=== PATIENT | male | born 1990 | race Caucasian/White ===

== ENCOUNTER 2017-04-12 03:10 | Emergency (ER) | payer SELFPAY ==
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
== END 2017-04-12 04:25 ==
LOC: MW.ED 03:10
DX: S01.81XA Laceration without foreign body of other part of head, initial encounter (principal); F10.120 Alcohol abuse with intoxication, uncomplicated; F17.210 Nicotine dependence, cigarettes, uncomplicated; W25.XXXA Contact with sharp glass, initial encounter
CPT/HCPCS: 12011; 99282; 99283

== ENCOUNTER 2019-11-26 00:45 | Emergency (ER) | payer OTHER ==
[2019-11-26] MEDS ORDERED: Lidocaine 1% with EPINEPHrine 1:100,000 20 ML MDV INJECT ONE (01:10)
[2019-11-26] MEDS ORDERED: Hydrogen Peroxide 3% Top Soln 473 ML Bottle TOP ONE (01:10)
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
== END 2019-11-26 03:45 ==
LOC: MW.ED 00:45
DX: S01.112A Laceration without foreign body of left eyelid and periocular area, initial encounter (principal); F10.129 Alcohol abuse with intoxication, unspecified; R09.02 Hypoxemia; Z20.828 Contact with and (suspected) exposure to other viral communicable diseases; W22.8XXA Striking against or struck by other objects, initial encounter
CPT/HCPCS: 12013; 99282; 99283; U0002

== ENCOUNTER 2020-06-28 18:28 | Emergency (ER) | payer BC | END 2020-06-28 19:40 | disposition home or self-care (01) | LOC: MW.ED 18:28 | DX: Z02.89 Encounter for other administrative examinations (principal); Z91.030 Bee allergy status; Z72.0 Tobacco use | CPT/HCPCS: 82962; 99282; 99283 ==

== ENCOUNTER 2020-07-05 15:02 | Emergency (ER) | payer BC, OTHER ==
--- NOTE | 2020-07-05 15:27 | EDM.PDOC ---
ED HPI GENERAL MEDICAL PROBLEM - General Chief Complaint: General Stated Complaint: MEDICAL CLEARANCE Time Seen by Provider: 07/05/20 15:12 Source of Information: Reports: Patient History Limitations: Reports: No Limitations - History of Present Illness INITIAL COMMENTS - FREE TEXT/NARRATIVE: 30-year-old male presents for medical clearance for confinement. Patient does admit to drinking alcohol. He has no medical complaints. - Related Data Allergies Allergy/AdvReac Type Severity Reaction Status Date / Time bee venom protein (honey bee) Allergy Airway Verified 07/05/20 15:23 Tightness Home Meds: Home Meds . [No Known Home Meds] 04/12/17 [History] Past Medical History HEENT History: Reports: None Cardiovascular History: Reports: None Respiratory History: Reports: None Gastrointestinal History: Reports: None Genitourinary History: Reports: None Musculoskeletal History: Reports: None Neurological History: Reports: None Psychiatric History: Reports: None Endocrine/Metabolic History: Reports: None Hematologic History: Reports: None Immunologic History: Reports: None Oncologic (Cancer) History: Reports: None Dermatologic History: Reports: None - Infectious Disease History Infectious Disease History: Reports: Hepatitis C - Past Surgical History Head Surgeries/Procedures: Reports: None HEENT Surgical History: Reports: None Cardiovascular Surgical History: Reports: None Respiratory Surgical History: Reports: None GI Surgical History: Reports: None Male Surgical History: Reports: None Endocrine Surgical History: Reports: None Neurological Surgical History: Reports: None Musculoskeletal Surgical History: Reports: None Oncologic Surgical History: Reports: None Social & Family History - Family History Family Medical History: No Pertinent Family History HEENT: Reports: None - Caffeine Use Caffeine Use: Reports: None ED ROS GENERAL - Review of Systems Review Of Systems: Comprehensive ROS is negative, except as noted in HPI. ED EXAM, GENERAL - Physical Exam Exam: See Below Exam Limited By: No Limitations General Appearance: Alert, WD/WN, No Apparent Distress Throat/Mouth: Normal Voice, No Airway Compromise Head: Atraumatic, Normocephalic Neck: Normal Inspection Respiratory/Chest: No Respiratory Distress, No Accessory Muscle Use Cardiovascular: Normal Peripheral Pulses, Tachycardia GI/Abdominal: Soft, Non-Tender Extremities: Normal Inspection Neurological: Alert, Normal Gait Psychiatric: Normal Affect, Normal Mood Skin Exam: Warm, Dry, Intact, Normal Color Course - Re-Assessments/Exams Free Text/Narrative Re-Assessment/Exam: 07/05/20 15:26 Patient is stable on his feet, speaks without slurred speech, does not reveal any evidence of clinical intoxication. He is mildly tachycardic which is understandable in the setting of alcohol abuse. He denies chest pain or difficulty breathing. He has no medical complaints. Patient is stable for discharge to intermediate Departure - Departure Time of Disposition: 15:22 Disposition: Home, Self-Care 01 Condition: Good Clinical Impression: Alcohol abuse - Discharge Information Instructions: Alcohol Use Disorder Referrals: PCP,None [Primary Care Provider] - Additional Instructions: The following information is given to patients seen in the emergency department who are being discharged to home. This information is to outline your options for follow-up care. We provide all patients seen in our emergency department with a follow-up referral. The need for follow-up, as well as the timing and circumstances, are variable depending upon the specifics of your emergency department visit. If you don't have a primary care physician on staff, we will provide you with a referral. We always advise you to contact your personal physician following an emergency department visit to inform them of the circumstance of the visit and for follow-up with them and/or the need for any referrals to a consulting specialist. The emergency department will also refer you to a specialist when appropriate. This referral assures that you have the opportunity for follow-up care with a specialist. All of these measure are taken in an effort to provide you with optimal care, which includes your follow-up. Under all circumstances we always encourage you to contact your private physician who remains a resource for coordinating your care. When calling for follow-up care, please make the office aware that this follow-up is from your recent emergency room visit. If for any reason you are refused follow-up, please contact the [facility] Emergency Department at and asked to speak to the emergency department charge nurse. Please follow up with your primary care physician. If you do not have a primary care physician, see below: [facility] [address] [place] [id number] [facility] [address] [place] [id number] [facility] [address] [place] [id number]
== END 2020-07-05 15:40 | disposition home or self-care (01) ==
LOC: MW.ED 15:02
DX: F10.10 Alcohol abuse, uncomplicated (principal); Z91.030 Bee allergy status
CPT/HCPCS: 99282

== ENCOUNTER 2023-01-25 17:39 | Emergency (ER) | payer BC, OTHER ==
[~2023-01-25 17:39] MED LIST: LORazepam 2 MG/ML SDV IM ONE; OLANZapine 10 MG Vial IM ONE
[2023-01-25] MEDS ORDERED: OLANZapine 10 MG Vial ONE (17:41)
[2023-01-25] MEDS ORDERED: LORazepam 2 MG/ML SDV ONE (17:42)
[2023-01-25] MEDS ORDERED: Water For Injection, Sterile 20 ML ONE (17:42)
[2023-01-25] MEDS ORDERED: Sodium Chloride 0.9% 10 ML Syringe FLUSH PRN (17:45)
[2023-01-25] MEDS ORDERED: Sodium Chloride 0.9% 2.5 ML Syringe FLUSH PRN (17:45)
[2023-01-25 18:17] LABS: HEMATOCRIT 49.7 % (38.0-50.0); HEMOGLOBIN 17.4 g/dL (13.0-17.0); MEAN CORPUSCULAR HEMOGLOBIN 29.6 pg (27.0-32.0); MEAN CORPUSCULAR VOLUME 84.7 fL (80.0-98.0); PLATELET COUNT,PLT 288 K/uL (150-400); RED BLOOD CELL COUNT 5.87 M/uL (4.50-5.90)
[2023-01-25] MEDS ORDERED: LORazepam 2 MG/ML SDV IVPUSH ONE ×2 (18:17→18:18)
[2023-01-25 18:39] LABS: MAGNESIUM 2.4 mg/dL (1.8-2.4)
[2023-01-25 18:41] LABS: INR 0.95 (0.86-1.11)
[2023-01-25] MEDS ORDERED: Sodium Chloride 0.9% 1,000 ML IV ONE (18:45)
[2023-01-25 18:46] LABS: A/G RATIO 1.1 (0.9-1.6); ALANINE AMINOTRANSFERASE,ALT 51 IU/L (14-63); ALBUMIN 4.2 g/dL (3.4-5.0); ALKALINE PHOSPHATASE 81 U/L (46-116); ASPARTATE AMNIOTRANSFERASE,AST 24 IU/L (15-37); BILIRUBIN TOTAL 0.2 mg/dL (0.2-1.0); BLOOD UREA NITROGEN,BUN 7 mg/dL (7.0-18.0); CALCIUM 8.3 mg/dL (8.5-10.1); CARBON DIOXIDE,CO2 24.9 mmol/L (21.0-32.0); CHLORIDE,CL 108 mmol/L (98-107); CREATININE 0.9 mg/dL (0.8-1.3); GLUCOSE RANDOM 116 mg/dL (74-106); LIPASE 44 U/L (16-77); POTASSIUM,K 3.5 mmol/L (3.5-5.1); SODIUM,NA 146 mmol/L (136-148)
[2023-01-25 18:47] LABS: ESTIMATED GFR 116 mL/min (>60)
[2023-01-25 19:10] LABS: BAND ABSOLUTE MAN 5.3; LYMPHOCYTES ABSOLUTE MAN 5.3 (0.6-2.4); LYMPHOCYTES PERCENT MAN 36 % (16.0-40.0); MONOCYTES ABSOLUTE MAN 1.9 (0.0-0.8); MONOCYTES PERCENT MAN 13 % (0.0-15.0); SEG NEUTROPHILS ABSOLUTE MAN 7.1 (1.4-5.7); SEG NEUTROPHILS PERCENT MAN 48 % (48.0-80.0)
[2023-01-25 19:11] LABS: EOSINOPHILS ABSOLUTE MAN 0.4 (0.0-0.7); EOSINOPHILS PERCENT MAN 3 % (0.0-7.0)
[2023-01-25] MEDS ORDERED: OLANZapine 10 MG Vial IM ONE (19:25)
[2023-01-25] MEDS ORDERED: Diphtheria,Pertussis(Acell),Tetanus Vaccine 0.5 ML Syringe IM ONE (19:42)
[2023-01-25] MEDS ORDERED: Iopamidol 755 MG/ML 500 ML Multipack Bottle IVPUSH ONE (22:28)
== END 2023-01-25 23:59 | disposition home or self-care (01) ==
LOC: MW.ED 17:39
DX: S02.92XA Unspecified fracture of facial bones, initial encounter for closed fracture (principal); S01.81XA Laceration without foreign body of other part of head, initial encounter; Z91.030 Bee allergy status; V29.99XA Rider (driver) (passenger) of other motorcycle injured in unspecified traffic accident, initial encounter; Y92.410 Unspecified street and highway as the place of occurrence of the external cause
CPT/HCPCS: 12013; 36415; 70450; 70486; 72125; 80053; 80307; 83605; 83690; 83735; 85025; 85610; 85730; 86850; 86900; 86901; 90471; 90715; 96360; 96372; 99291; G0390; J2060; J2405; J3490; J7030